=== PATIENT | female | born 1995 | race Hispanic/Latino ===

== ENCOUNTER 2020-05-22 13:10 | Outpatient (CLI) | payer BC ==
--- NOTE | 2020-05-22 13:52 | RAD ---
Exam: Abdomen 2 views HISTORY: Constipation. FINDINGS: Nonspecific bowel gas pattern. No suspicious densities in the abdomen or pelvis. No differe ntial air-fluid levels. Calcification in the right hemipelvis is presumed to be a phlebolith. No acute osseous abnormalities. There are scattered fecal material. The amount of fecal burden does not suggest constipation. IMPRESSION: Nonspecific bowel gas pattern. No significant fecal burden to suggest constipation.
== END 2020-05-22 13:11 | disposition home or self-care (01) ==
LOC: BICRAD 13:10
PROVIDERS: ATTEND Internal Medicine Gastroenterology
DX: K59.09 Other constipation (principal); R10.9 Unspecified abdominal pain
CPT/HCPCS: 74019